=== PATIENT | male | born 1955 | race Caucasian/White ===

== ENCOUNTER 2018-07-14 03:29 | Inpatient (IN) ==
[2018-07-14 04:12] LABS: Baso # (Auto) 0.1 th/mm3 (0.0-0.2); Baso % (Auto) 0.5 % (0.0-2.0); Eos # (Auto) 0.1 th/mm3 (0.0-0.4); Eos % (Auto) 0.6 % (0.0-4.0); Hematocrit 43.7 % (39.0-51.0); Hemoglobin 14.2 gm/dL (13.0-17.0); Lymph # (Auto) 2.3 th/mm3 (1.0-4.8); Mean Corpuscular HGB Conc 32.4 % (32.0-36.0); Mean Corpuscular Hemoglobin 28.1 pg (27.0-34.0); Mean Corpuscular Volume 86.6 fL (80.0-100.0); Mean Platelet Volume 7.6 fL (7.0-11.0); Mono # (Auto) 0.7 th/mm3 (0.0-0.9); Mono % (Auto) 7.3 % (0.0-8.0); Neut # (Auto) 6.6 th/mm3 (1.8-7.7); Neut % (Auto) 67.6 % (16.0-70.0); Platelet Count 277 th/mm3 (150-450); Red Blood Count 5.04 mil/mm3 (4.50-5.90); Red Cell Distribution Width 18.7 % (11.6-17.2); White Blood Count 9.7 th/mm3 (4.0-11.0)
--- NOTE | 2018-07-14 04:15 | XR ---
EXAM DATE: 07/14/2018 4:08 AM EST AGE/SEX: 62 years / Male INDICATIONS: Chest pain, and short of breath. CLINICAL DATA: This is the patient's initial encounter. Patient reports that signs and symptoms have been present for 1 day and indicates a pain score of 5/10. MEDICAL/SURGICAL HISTORY: None. CABG. COMPARISON: . FINDINGS: Cardiac enlargement and vascular congestion and diffuse interstitial prominence. Sternotomy wires not ed. CONCLUSION: Mild cardiac decompensation Electronically signed by: Martin Gonzalez MD Board Certified Radiologist 07/14/2018 4:14 AM EST
--- NOTE | 2018-07-14 04:32 | ED ---
HPI General Chief complaint: Arrhythmia / Palpitations Stated complaint: Chest pain Time Seen by Provider: 07/14/18 03:55 Source: patient Mode of arrival: EMS Limitations: no limitations History of Present Illness HPI narrative: 62-year-old [place] and shivering. Patient says that he has come here to visit a friend and they were out drinking. He remembers coming to the beach side and then friends left him. Patient has history of atrial fibrillation and is on Eliquis. He says he has been taking his medications. He says he is from [place] and his here visiting. 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 He had an ablation in the past that had a recurrence after 2-3 months. He is scheduled for another ablation next week. Patient denies doing any drugs. He was in A. fib with RVR. He has been complaining of some chest pressure and shortness of breath since yesterday. His blood glucose was 168. No aggravating or relieving symptoms identified. No radiation of the pain. Related Data Home Medications Medication Instructions Recorded Confirmed Unable to Obtain Home Meds 07/14/18 07/14/18 Allergies Allergy/AdvReac Type Severity Reaction Status Date / Time No Known Allergies Allergy Verified 07/14/18 03:36 Review of Systems ROS: all other systems reviewed are negative [facility] Medical History Medical History A-fib (Acute) Hypertension (Acute) Surgical History Surgical History Hx of gastric bypass (Acute) S/P triple vessel bypass (Acute) Social History Social History Substance History: No History of Abuse Second Hand Smoke Exposure: Yes Smoking Status: Current every day smoker Tobacco Type: Cigarettes How Often Do You Have a Drink Containing Alcohol: 2 to 4 times a month Recent Travel in [facility] within the Last 8 Weeks: No Recent Out of Country Travel within the Last 8 Weeks: No Immunization History Tetanus Immunization: Unsure Exam Narrative Exam Narrative: GENERAL: Awake, alert, no obvious distress, smells of alcohol SKIN: Focused skin assessment warm/dry. HEAD: Atraumatic. Normocephalic. EYES: Pupils equal and round. No scleral icterus. No injection or drainage. ENT: No nasal bleeding or discharge. Mucous membranes pink and moist. NECK: Trachea midline. No JVD. CARDIOVASCULAR: Irregularly irregular rhythm, tachycardia. No murmur appreciated. RESPIRATORY: No accessory muscle use. Clear to auscultation. Breath sounds equal bilaterally. GASTROINTESTINAL: Abdomen soft, non-tender, nondistended. Hepatic and splenic margins not palpable. MUSCULOSKELETAL: No obvious deformities. No clubbing. No cyanosis. No edema. NEUROLOGICAL: Awake and alert. No obvious cranial nerve deficits. Motor grossly within normal limits. Normal speech. PSYCHIATRIC: Appropriate mood and affect; insight and judgment normal. Course Initial Documented Vital Signs Pulse Rate 137 H 07/14/18 03:36 Respiratory Rate 20 07/14/18 03:36 Blood Pressure 132/89 07/14/18 03:36 Pulse Oximetry 98 07/14/18 03:36 Last Documented Vital Signs Pulse Rate 95 H 07/14/18 05:28 Respiratory Rate 18 07/14/18 05:28 Blood Pressure 132/83 07/14/18 05:28 Pulse Oximetry 99 07/14/18 05:28 Critical Care Time Critical Care Time: Yes Total Critical Care Time: 30 Attestation: Aggregate critical care time was 30 minutes. Time to perform other separately billable procedures was not included in the critical care time. My time did not include minutes spent treating any other patients simultaneously or on activities that did not directly contribute to the patient's treatment. The services I provided to this patient were to treat and/or prevent clinically significant deterioration that could result in: A. fib, RVR, hypocalcemia, hypokalemia, dehydration, metabolic correction I provided critical care services requiring my management, as noted below: Chart data review, documentation time, medication orders and management, vital sign assessments/reviewing monitor data, ordering and reviewing lab tests, ordering and interpreting/reviewing x-rays and diagnostic studies, care of the patient and discussion of the patient with the admitting physicians. Medical Decision Making MDM Narrative Medical decision making narrative: 4:30 AM awaiting for blood test result. I have ordered Cardizem bolus and p.o. Cardizem for bringing the heart rate down. 5:34 AM blood test results are back and patient has significant metabolic abnormalities. Have ordered for corrections. His heart rate is down to the 90s at this point. 5:54 AM patient has coronary artery disease history. With the chest pressure I would like to rule him out for acute coronary syndrome. I discussed it with the hospitalist who agreed that this patient should be admitted to the medical service rather than chest pain center to be ruled out. She has accepted the patient for admission. Patient is aware of this plan and is okay with it. Medical Screen Exam Complete: Yes Emergency Medical Condition: Yes Lab Data Result diagrams: 07/14/18 04:05 07/14/18 04:05 Lab Results 07/14/18 07/14/18 07/14/18 Range/Units 04:05 04:05 04:05 WBC 9.7 (4.0-11.0) th/mm3 RBC 5.04 (4.50-5.90) mil/mm3 Hgb 14.2 (13.0-17.0) gm/dL Hct 43.7 (39.0-51.0) % MCV 86.6 (80.0-100.0) fL MCH 28.1 (27.0-34.0) pg MCHC 32.4 (32.0-36.0) % RDW 18.7 H (11.6-17.2) % Plt Count 277 (150-450) th/mm3 MPV 7.6 (7.0-11.0) fL Neut % (Auto) 67.6 (16.0-70.0) % Lymph % (Auto) 24.0 (9.0-44.0) % [place] % (Auto) 7.3 (0.0-8.0) % Eos % (Auto) 0.6 (0.0-4.0) % Baso % (Auto) 0.5 (0.0-2.0) % Neut # (Auto) 6.6 (1.8-7.7) th/mm3 Lymph # (Auto) 2.3 (1.0-4.8) th/mm3 [place] # (Auto) 0.7 (0.0-0.9) th/mm3 Eos # (Auto) 0.1 (0.0-0.4) th/mm3 Baso # (Auto) 0.1 (0.0-0.2) th/mm3 WBC Differential . Differential Comment Auto diff final Sodium 148 H (136-145) meq/L Potassium 3.1 L (3.5-5.1) meq/L Chloride 120 H (98-107) meq/L Carbon Dioxide 17.1 L (21.0-32.0) meq/L Anion Gap 11 (5-15) meq/L BUN 11 (7-18) mg/dL Creatinine 0.74 (0.60-1.30) mg/dL Estimated GFR Greater than 89 (>89) mL/min Random Glucose 91 (74-106) mg/dL Calcium 5.8 L* (8.5-10.1) mg/dL Calcium Adj for Albumin 6.9 L* (8.5-10.1) mg/dL Magnesium 1.8 (1.5-2.5) mg/dL Total Bilirubin 0.2 (0.2-1.0) mg/dL AST 19 (15-37) U/L ALT 21 (12-78) U/L Alkaline Phosphatase 109 (45-117) U/L Troponin I 0.02 (0.02-0.05) ng/mL Total Protein 5.8 L (6.4-8.2) g/dL Albumin 2.6 L (3.4-5.0) g/dL Serum Alcohol 206 H (0-5) mg/dL Imaging Data Radiologist's impression: Chest X-Ray 07/14/18 03:55 CONCLUSION: Mild cardiac decompensation ECG Data Attestation: I personally reviewed and interpreted this ECG as follows: Interpretation: Twelve-lead EKG was reviewed by me. Atrial relation, RVR, right bundle branch block. Heart rate of 116 beats. Discharge Plan Discharge Disposition Patient Disposition: ED Admit(ED Internal Use Only) Discharge Order Discharge Orders: ED Use Only Admit Order (Routine); Ordered 07/14/18 Ordered By: Alfred Chu Physicians Team ED Provider: Alfred Chu Primary Care Provider: Primary Care Physici,Niurka Rxs /Orders / Referrals /Forms Prescriptions: No Action Unable to Obtain Home Meds RF: 0 Discharge Interventions Interventions: Vital Signs Last Done: 07/14/18 03:55 Status ED Status: With Doctor
[2018-07-14 04:49] LABS: Alanine Aminotransferase 21 U/L (12-78); Albumin 2.6 g/dL (3.4-5.0); Alkaline Phosphatase 109 U/L (45-117); Anion Gap 11 meq/L (5-15); Aspartate Aminotransferase 19 U/L (15-37); Blood Urea Nitrogen 11 mg/dL (7-18); Calcium 5.8 mg/dL (8.5-10.1); Carbon Dioxide 17.1 meq/L (21.0-32.0); Chloride 120 meq/L (98-107); Glomerular Filtration Rate Greater Than 89 mL/min (>89); Glucose,Random 91 mg/dL (74-106); Potassium 3.1 meq/L (3.5-5.1); Sodium 148 meq/L (136-145); Total Protein 5.8 g/dL (6.4-8.2); Troponin I 0.02 ng/mL (0.02-0.05)
[2018-07-14 04:53] LABS: Alcohol 206 mg/dL (0-5)
[2018-07-14] MEDS ORDERED: Calcium Gluconate Inj 1 GM in Sodium Chlor 0.9% Inj 90 ML IV.SIG ONE (05:09)
[2018-07-14] MEDS ORDERED: Sod Chloride 0.9% Inj 1,000 ML IV.SIG SCH (05:15)
[2018-07-14] MEDS ORDERED: Morphine Sulfate Inj 2 MG/ML Vial IV.PUSH PRN (06:00)
[2018-07-14] MEDS ORDERED: Haloperidol Inj 5 MG/ML Ampul IV.PUSH PRN (06:01)
[2018-07-14] MEDS ORDERED: Bisacodyl 10 MG Supp RECTAL PRN (06:01)
[2018-07-14] MEDS ORDERED: Acetaminophen 325 MG Tablet PO PRN (06:01)
[2018-07-14] MEDS ORDERED: LORazepam 1 MG Tablet PO PRN (06:01)
[2018-07-14] MEDS: Sod Chloride 0.9% Inj 1,000 ML IV.CONT SCH ×2 (07:23→17:09)
--- NOTE | 2018-07-14 08:42 | ECG ---
Date Performed: 07/14/2018 Time Performed: 04:15:04 PTAGE: 62 years EKG: ATRIAL FIBRILLATION WITH RAPID VENTRICULAR RESPONSE RIGHT BUNDLE BRANCH BLOCK Nonspecific T wave changes ABNORMAL ECG NO PREVIOUS TRACING DOCTOR: Bartolo De Jesus Interpretating Date/Time 07/14/2018 08:41:31
[2018-07-14] MEDS ORDERED: Sodium Chlor 0.9% Inj 250 ML IV.SIG SCH (08:48)
[2018-07-14] MEDS ORDERED: dilTIAZem CD 120 MG Capsule PO SCH (09:00)
[2018-07-14] MEDS ORDERED: Senna/Docusate Sodium 8.6/50 MG Tablet PO SCH (09:00)
[2018-07-14] MEDS ORDERED: Multivitamin/Minerals Therapeutic Tablet PO SCH (09:00)
[2018-07-14] MEDS ORDERED: Folic Acid 1 MG Tablet PO SCH (09:00)
[2018-07-14 09:56] LABS: Albumin 3.2 g/dL (3.4-5.0); Calcium 7.7 mg/dL (8.5-10.1); Troponin I 0.04 ng/mL (0.02-0.05)
[2018-07-14 10:27] LABS: Calcium-Albumin Corrected 8.3 mg/dL (8.5-10.1)
--- NOTE | 2018-07-14 11:47 | P.HPIM ---
History of Present Illness Primary Care Physician: No Primary Care Physician Chief Complaint: Alcohol abuse, atrial fibrillation History of Present Illness: 62-year-old male with past medical history of atrial fibrillation who follows in [place] with cardiology and plans for ablation [place] and shivering. Patient says that he has come here to visit a friend and they were out drinking. He remembers coming to the beach side and then friends left him. Patient has history of atrial fibrillation and is on Eliquis. He says he has been taking his medications. He says he is from [place] and he is here visiting. 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 He had an ablation in the past that had a recurrence after 2-3 months. He is scheduled for another ablation next week. Patient denies doing any drugs. He was in A. fib with RVR however says he did not take his metoprolol in the morning. He has been complaining of some chest pressure and shortness of breath since yesterday however all resolved. His blood glucose was 168. No aggravating or relieving symptoms identified. No radiation of the pain. Says this symptoms are not new and wants t follow with his cardiology in [place]. Says he has a ride home later today. He denies chest pain , sob, n/v/d/c. He is very hungry and wants to eat more. He is able to tolerate food without any problems. He is more anxious and worried about not going home today. Inpatient Certification Inpatient Certification: I certify that the inpatient services were ordered in accordance with Medicare regulations governing the order. This includes certification that hospital inpatient services are reasonable and necessary and in the case of services not specified as inpatient-only under 42 CFR 419.22(n), that they are appropriately provided as inpatient services in accordance to with the 2-midnight benchmark under 43 CFR 412.3(e) Estimated Total Length of Stay (Days): 2 Plans for Post Hospital Care: Not yet determined Review of Systems Review of Systems: all other systems reviewed are negative [facility] Medical History Medical History A-fib (Acute) Hypertension (Acute) Surgical History Surgical History Hx of gastric bypass (Acute) S/P triple vessel bypass (Acute) Social History Social History Substance History: No History of Abuse Second Hand Smoke Exposure: Yes Smoking Status: Current some day smoker Tobacco Type: Cigarettes How Often Do You Have a Drink Containing Alcohol: 2 to 3 times a week Recent Travel in [place] within the Last 8 Weeks: No Recent Out of Country Travel within the Last 8 Weeks: No Immunization History Tetanus Immunization: >5 Years Hx Influenza Vaccine This Season: No Medications and Allergies Allergies Allergy/AdvReac Type Severity Reaction Status Date / Time No Known Allergies Allergy Verified 07/14/18 03:36 Home Medications Medication Instructions Recorded Confirmed Type apixaban [Eliquis] 5 mg PO BID 07/14/18 07/14/18 History metoprolol tartrate 200 mg PO BID 07/14/18 07/14/18 History omeprazole 20 mg PO DAILY 07/14/18 07/14/18 History Active Medications: Active Medications Acetaminophen (Tylenol) 650 mg PO Q4H PRN PRN Reason: Temp > 100.4 Al Hydroxide/Mg Hydroxide (Milk Of Magnesia Liq) 30 ml PO Q12H PRN PRN Reason: Mild Constipation Aspirin (Ecotrin) 81 mg PO DAILY [facility] Last Admin: 07/14/18 08:28 Dose: 81 mg Bisacodyl (Dulcolax Supp) 10 mg RECTAL DAILY PRN PRN Reason: SEVERE CONSITIPATION Diltiazem HCl (Cardizem Cd 24hr) 120 mg PO DAILY [facility] Last Admin: 07/14/18 08:28 Dose: 120 mg Flumazenil (Romazicon Inj) 0.2 mg IV.PUSH Q1M PRN PRN Reason: OVERSEDATION Folic Acid (Folic Acid) 1 mg PO DAILY [facility] Stop: 07/19/18 08:59 Last Admin: 07/14/18 08:28 Dose: 1 mg Haloperidol Lactate (Haldol Inj) 1 mg IV.PUSH Q15M PRN PRN Reason: for severe agitation Sodium Chloride (Ns Inj) 1,000 mls @ 100 mls/hr IV.CONT .Q10H [facility] Last Admin: 07/14/18 07:23 Dose: 100 mls/hr Lactulose (Lactulose Liq) 30 ml PO DAILY PRN PRN Reason: SEVERE CONSITIPATION Lorazepam (Ativan Inj) 1 mg IV.PUSH Q4H PRN PRN Reason: for CIWA 8-10 Lorazepam (Ativan Inj) 2 mg IV.PUSH Q15M PRN PRN Reason: for CIWA > 20 Lorazepam (Ativan Inj) 2 mg IV.PUSH Q1H PRN PRN Reason: for CIWA 15-20 Lorazepam (Ativan Inj) 2 mg IV.PUSH Q2H PRN PRN Reason: for CIWA 11-14 Lorazepam (Ativan) 1 mg PO Q4H PRN PRN Reason: for CIWA 8-10 Lorazepam (Ativan) 2 mg PO Q2H PRN PRN Reason: for CIWA 11-14 Morphine Sulfate (Morphine Inj) 2 mg IV.PUSH Q4H PRN PRN Reason: PAIN SCALE 6 TO 10 Multivitamins/Minerals (Theragran-M) 1 tab PO DAILY [facility] Stop: 07/19/18 08:59 Last Admin: 07/14/18 08:28 Dose: 1 tab Nitroglycerin (Nitro-Bid 2% Oint) 0.5 inch TOPICAL Q6HR PRN PRN Reason: Chest Pain Ondansetron HCl (Zofran Inj) 4 mg IV.PUSH Q6H PRN PRN Reason: NAUSEA OR VOMITING Pravastatin Sodium (Pravachol) 40 mg PO DAILY [facility] Last Admin: 07/14/18 08:28 Dose: 40 mg Senna/Docusate Sodium (Tory-Colace) 1 tab PO BID [facility] Last Admin: 07/14/18 08:28 Dose: 1 tab Sennosides (Senokot) 17.2 mg PO Q12H PRN PRN Reason: Moderate Constipation Sodium Chloride (Ns Flush) 2 ml IV.FLUSH UNSCH PRN PRN Reason: FLUSH AFTER USING IV ACCESS Sodium Chloride (Ns Flush) 2 ml IV.FLUSH BID [facility] Last Admin: 07/14/18 08:22 Dose: Not Given Sodium Chloride (Ns Flush) 2 ml IV.FLUSH PRN PRN PRN Reason: FLUSH AFTER USING IV ACCESS Thiamine HCl (Vitamin B1) 100 mg PO DAILY [facility] Last Admin: 07/14/18 08:28 Dose: 100 mg Physical Exam Vital signs: Vital Signs 07/14/18 03:36 07/14/18 03:55 07/14/18 04:13 Temperature Pulse Rate 137 H 105 H 115 H Respiratory Rate 20 18 18 Blood Pressure 132/89 117/89 Pulse Oximetry 98 99 99 07/14/18 04:21 07/14/18 04:35 07/14/18 05:28 Temperature Pulse Rate 100 H 95 H Respiratory Rate 18 18 Blood Pressure 124/79 132/83 Pulse Oximetry 99 99 99 07/14/18 06:05 07/14/18 07:00 07/14/18 08:00 Temperature 97.8 F 98.2 F Pulse Rate 82 89 95 H Respiratory Rate 16 17 17 Blood Pressure 121/79 116/60 148/87 H Pulse Oximetry 98 99 98 07/14/18 08:10 07/14/18 08:55 07/14/18 09:49 Temperature 97.9 F 97.8 F Pulse Rate 96 H 93 H 96 H Respiratory Rate 17 16 Blood Pressure 124/86 134/85 Pulse Oximetry 99 98 07/14/18 10:49 Temperature Pulse Rate 100 H Respiratory Rate Blood Pressure Pulse Oximetry Intake & Output 07/13/18 07/14/18 07/14/18 18:59 06:59 18:59 Intake Total 100 / 100 1000 / 1000 Output Total 800 / 800 Balance 100 / 100 200 / 200 Weight 94.347 kg 95.1 kg Intake: IV 100 / 100 1000 / 1000 Calcium Gluconate Inj 1 GM In 100 / 100 NS Inj 90 ML @ 100 mls/hr IV. SIG ONCE ONE Rx#:[id number] NS Inj 1,000 ML @ 1000 mls/hr 1000 / 1000 IV.SIG BOLUS SUZANNE Rx#:[id number] Output: Urine 800 / 800 Other: # Voids 2 Date of Last Bowel Movement 07/13/18 Weight On Admission 95.1 kg Narrative: GENERAL: 62 yo male, at the margin of the bed appears in nad. SKIN: Warm and dry. HEAD: Atraumatic. Normocephalic. EYES: Pupils equal and round. No scleral icterus. No injection or drainage. ENT: No nasal bleeding or discharge. Mucous membranes pink and moist. NECK: Trachea midline. No JVD. CARDIOVASCULAR: Irregular rate and rhythm. RESPIRATORY: No accessory muscle use. Clear to auscultation. Breath sounds equal bilaterally. GASTROINTESTINAL: Abdomen soft, non-tender, nondistended. Hepatic and splenic margins not palpable. MUSCULOSKELETAL: Extremities without clubbing, cyanosis, or edema. No obvious deformities. NEUROLOGICAL: Awake and alert. No obvious cranial nerve deficits. Motor grossly within normal limits. Five out of 5 muscle strength in the arms and legs. Normal speech. PSYCHIATRIC: Appropriate mood and affect; insight and judgment normal. Results Labs CBC & Chem 7: 07/14/18 04:05 07/14/18 16:35 Imaging Impressions Chest X-Ray 07/14/18 03:55 CONCLUSION: Mild cardiac decompensation Caprini VTE Risk Assessment Caprini VTE Risk Assessment: Moderate/High Risk (score >= 2) Caprini Risk Assessment Model: Point Value = 1 Point Value = 2 Point Value = 3 Point Value = 5 Age 41-60 Minor surgery BMI > 25 kg/m2 Swollen legs Varicose veins or History of unexplained or recurrent spontaneous Oral contraceptives or hormone replacement Sepsis (< 1 month) Serious lung disease, including pneumonia (< 1 month) Abnormal pulmonary function Acute myocardial infarction Congestive heart failure (< 1 month) History of inflammatory bowel disease Medical patient at bed rest Age 61-74 Arthroscopic surgery Major open surgery (> 45 min) Laparoscopic surgery (> 45 min) Malignancy Confined to bed (> 72 hours) Immobilizing plaster cast Central venous access Age >= 75 History of VTE Family history of VTE Factor V Leiden Prothrombin [id number] Lupus anticoagulant Anticardiolipin antibodies Elevated serum homocysteine Heparin-induced thrombocytopenia Other congenital or acquired thrombophilia Stroke (< 1 month) Elective arthroplasty Hip, pelvis, or leg fracture Acute spinal cord injury (< 1 month) Prophylaxis Regimen: Total Risk Factor Score Risk Level Prophylaxis Regimen 0-1 Low Early ambulation 2 Moderate Order ONE of the following: *Sequential Compression Device (SCD) *Heparin 5000 units SQ BID 3-4 Higher Order ONE of the following medications: *Heparin 5000 units SQ TID *Enoxaparin/Lovenox 40 mg SQ daily (WT < 150 kg, CrCl > 30 mL/min) *Enoxaparin/Lovenox 30 mg SQ daily (WT < 150 kg, CrCl > 10-29 mL/min) *Enoxaparin/Lovenox 30 mg SQ BID (WT < 150 kg, CrCl > 30 mL/min) AND/OR *Sequential Compression Device (SCD) 5 or more Highest Order ONE of the following medications: *Heparin 5000 units SQ TID (Preferred with Epidurals) *Enoxaparin/Lovenox 40 mg SQ daily (WT < 150 kg, CrCl > 30 mL/min) *Enoxaparin/Lovenox 30 mg SQ daily (WT < 150 kg, CrCl > 10-29 mL/min) *Enoxaparin/Lovenox 30 mg SQ BID (WT < 150 kg, CrCl > 30 mL/min) AND *Sequential Compression Device (SCD) Assessment and Plan Plan 62 yo male with h/o cabg and Afib, ETOH abuse: Afib with RVR. Patient has a h/o Afib and had ablation in the past . He follows with his cardiology Dr in [place] and has an appointment for ablation next week. Patient is here visiting and has a ride back home later today. Says he was drinking more and did not take his morning meds and his HR is running high. He has no chest pain. Hypernatremia Hypokalemia Hypocalcemia Received cardizem po in the ED] Restart home meds metoprolol po Monitor on telemetry Replete electrolytes, will repeat labs later today Counselled regarding EtOH use. HR better controlled lytes repleted. DC later today to follow up with his cardiology Dr in [place] and if need to go to ER in [place] if deteriorates DC plan : DC home n stable condition to follow up as OP with PCP and consultants. to follow up with his cardiology Dr in [place] and if need to go to ER in [place] if deteriorates. Diet: healthy heart diet Activity ad trent as tolerated , the patient was adviced to not drive H&P: Quality VTE Deep Vein Thrombosis/Pulmonary Embolism Present on Admission: No
[2018-07-14] MEDS ORDERED: Metoprolol Tartrate 100 MG Tablet PO ONE (12:02)
[2018-07-14] MEDS ORDERED: Potassium Phosphate 500 MG Soluble Tablet PO ONE (12:03)
[2018-07-14] MEDS ORDERED: Potassium Bicarbonate 25 MEQ Effervescent Tablet PO ONE (12:03)
[2018-07-14] MEDS ORDERED: Magnesium Oxide 400 MG Tablet PO ONE (12:04)
[2018-07-14] MEDS ORDERED: KCL 20 mEq/D5W/NaCl 0.9% Inj 1,000 ML IV.CONT SCH (12:05)
[2018-07-14 15:51] VITALS: BP 121/82; RESP 18; TEMP 98; O2SAT 97
[2018-07-14 17:06] LABS: Calcium 7.9 mg/dL (8.5-10.1); Carbon Dioxide 22.6 meq/L (21.0-32.0); Potassium 5.3 meq/L (3.5-5.1)
[2018-07-14 17:11] LABS: Troponin I 0.05 ng/mL (0.02-0.05)
[2018-07-14 17:55] VITALS: PULSE 94
[2018-07-14] MEDS ORDERED: Metoprolol Tartrate 100 MG Tablet PO SCH (21:00)
[2018-07-15] MEDS ORDERED: Pantoprazole Sodium 20 MG DR Tablet PO SCH (09:00)
== END 2018-07-14 18:35 | disposition home or self-care (01) | DRG 309 ==
LOC: EDBD → NEPE 03:29 → NEDA 05:55 → HCIS 09:00
PROVIDERS: ADMIT Hospitalist; ATTEND Hospitalist
CPT/HCPCS: 71010; 71045; 80048; 80053; 80307; 82040; 82948; 82962; 83735; 84443; 84484; 85025; 90765; 90775; 93005; 96365; 96375; 99291; J0610; J3480; J7030